=== PATIENT | female | born 1960 | race African-American/Black ===

== ENCOUNTER 2017-03-17 08:35 | Day surgery (SDC) | payer SELFPAY ==
[2017-03-16 14:57] VITALS: BMI 24.3
[2017-03-17] MEDS ORDERED: LIDOCAINE HCL 1%, 10 MG/ML (20ML VIAL) ONE (09:41)
[2017-03-17] MEDS ORDERED: EPINEPHrine/PF 1 MG/1 ML (1:1,000) AMPULE ONE (09:41)
[2017-03-17] MEDS ORDERED: PROPOFOL 20 ML ONE ×2 (09:46)
[2017-03-17] MEDS ORDERED: fentaNYL CITRATE 250 MCG/5 ML VIAL ONE (09:46)
[2017-03-17] MEDS ORDERED: ROCURONIUM BROMIDE 50 MG/5 ML VIAL ONE (09:46)
[2017-03-17] MEDS ORDERED: MIDAZOLAM HCL 2 MG/2 ML SINGLE DOSE VIAL ONE (09:47)
[2017-03-17] MEDS ORDERED: ceFAZolin SODIUM 1 GM VIAL ONE ×2 (09:47→15:22)
[2017-03-17] MEDS ORDERED: HEPARIN NA (PORCINE) 5,000 UNITS/ML 1ML VIAL ONE (09:48)
[2017-03-17] MEDS ORDERED: ceFAZolin SODIUM 1 GM VIAL IVPB ONE (10:49)
[2017-03-17] MEDS ORDERED: BUPIVACAINE HCL 0.25% 125 MG/50 ML VIAL INF ONE (11:00)
[2017-03-17] MEDS ORDERED: DEXAMETHASONE SOD PHOSPHATE 4 MG/1 ML VIAL ONE (11:24)
[2017-03-17] MEDS ORDERED: BUPIVACAINE HCL/PF 0.25% (2.5MG/ML) 10 ML VIAL ONE (11:25)
[2017-03-17] MEDS ORDERED: NEOSTIGMINE METHYLSULFATE 0.5 MG/ML - 10 ML MDV ONE (13:16)
[2017-03-17] MEDS ORDERED: GLYCOPYRROLATE 0.2 MG/1 ML VIAL ONE (13:16)
[2017-03-17] MEDS ORDERED: BACITRACIN 15 GM TUBE TOPICAL OINTMENT ONE (13:59)
[2017-03-17] MEDS ORDERED: ONDANSETRON 4 MG/2 ML VIAL IVPUSH PRN (14:21)
[2017-03-17] MEDS ORDERED: morphine SULFATE 4 MG/ML VIAL IVPUSH PRN (14:23)
[2017-03-17] MEDS ORDERED: ONDANSETRON 4 MG/2 ML VIAL IVPB PRN (14:23)
--- NOTE | 2017-03-17 14:28 | OP ---
Operative Note - Note: Operative Date: 03/17/17 Pre-Operative Diagnosis: abdominal deformity Operation: abdominoplasty Findings: diastasis recti Post-Operative Diagnosis: Same as Pre-op Surgeon: Herbert Moss Vegetable Trimmer: Keely Ramirez Anesthesia: General Drains & Tubes with Location: jpx 2
[2017-03-17] MEDS ORDERED: LACTATED RINGERS SOLUTION 1,000 ML IV SCH (14:30)
[2017-03-17] MEDS ORDERED: ACETAMINOPHEN INJECTION 100 ML IVPB ONE (14:49)
[2017-03-17] MEDS: ACETAMINOPHEN 1000 MG/100 ML VIAL (NON FORMULARY) IVPB PRN (14:50)
[2017-03-17] MEDS ORDERED: HYDROmorphone HCL CARPU-JECT 2 MG/1 ML DISP.SYRIN ONE (14:58)
[2017-03-17] MEDS: CEFAZOLIN 1 GM/D5W 1 GM/50 ML BAG IVPB SCH ×2 (15:00→21:48)
[2017-03-17] MEDS ORDERED: HYDROmorphone HCL CARPU-JECT 1 MG/1 ML DISP.SYRIN IVPUSH PRN (15:01)
[2017-03-17] MEDS ORDERED: HYDROmorphone HCL CARPU-JECT 2 MG/1 ML DISP.SYRIN IVPUSH PRN (15:26)
[2017-03-17] MEDS: LACTATED RINGERS SOLUTION 1,000 ML IV SCH (16:40)
[2017-03-17] MEDS ORDERED: morphine CARPU-JECT 8 MG/1 ML DISP.SYRIN IVPUSH PRN (20:15)
[2017-03-17] MEDS: oxyCODONE HCL 5 MG TABLET PO PRN (21:48)
[2017-03-17] MEDS: HEPARIN NA (PORCINE) 5,000 UNITS/ML 1ML VIAL SQ SCH (21:48)
[2017-03-18] MEDS: oxyCODONE HCL 5 MG TABLET PO PRN ×2 (01:43→17:13)
[2017-03-18] MEDS: CEFAZOLIN 1 GM/D5W 1 GM/50 ML BAG IVPB SCH ×3 (02:28→14:20)
[2017-03-18] MEDS: LACTATED RINGERS SOLUTION 1,000 ML IV SCH (05:04)
[2017-03-18] MEDS: ACETAMINOPHEN 1000 MG/100 ML VIAL (NON FORMULARY) IVPB PRN ×2 (05:13→11:18)
--- NOTE | 2017-03-18 07:54 | PN ---
Progress Note (short form) - Note Progress Note: POD 1 VSS AF All NICHO thin and functioning well No collections All tissues viable Ambulating, Rodo PO, Using IS, will receive sq heparin OK for discharge with instructions
[2017-03-18] MEDS: HEPARIN NA (PORCINE) 5,000 UNITS/ML 1ML VIAL SQ SCH (09:40)
[2017-03-18 09:49] VITALS: TEMP 98.7
--- NOTE | 2017-03-18 11:11 | PN ---
Progress Note, Physician Chief Complaint: s/p abdominoplasty post op day one History of Present Illness: under general anesthesia - Current Medication List Current Medications: Active Medications Acetaminophen (Ofirmev Injection -) 1,000 mg IVPB Q6H PRN PRN Reason: FEVER OR PAIN Last Admin: 03/18/17 05:13 Dose: 1,000 mg Fentanyl (Sublimaze Injection -) 50 mcg IVPUSH [id number] PRN PRN Reason: PAIN Last Admin: 03/17/17 14:45 Dose: 50 mcg Heparin Sodium (Porcine) (Heparin -) 5,000 unit SQ BID GISELE Last Admin: 03/18/17 09:40 Dose: 5,000 unit Hydromorphone HCl (Dilaudid Injection -) 1 mg IVPUSH [id number] PRN PRN Reason: PAIN Lactated Ringer's (Lactated Ringers Solution) 1,000 mls @ 125 mls/hr IV ASDIR GISELE Last Admin: 03/17/17 20:14 Dose: Not Given Cefazolin Sodium (Ancef 1 Gm Premixed Ivpb -) 1 gm in 50 mls @ 100 mls/hr IVPB Q6H-IV GISELE Stop: 03/23/17 14:59 Last Admin: 03/18/17 09:40 Dose: 100 mls/hr Lactated Ringer's (Lactated Ringers Solution) 1,000 mls @ 75 mls/hr IV ASDIR GISELE Last Admin: 03/18/17 05:04 Dose: 75 mls/hr Morphine Sulfate (Morphine Sulfate) 2 mg IVPUSH Q4H PRN PRN Reason: PAIN Last Admin: 03/18/17 03:42 Dose: 2 mg Ondansetron HCl (Zofran Injection) 4 mg IVPUSH Q6H PRN PRN Reason: NAUSEA AND/OR VOMITING Ondansetron HCl (Zofran Injection) 8 mg IVPB Q6H PRN PRN Reason: NAUSEA Oxycodone HCl (Roxicodone -) 5 mg PO Q4H PRN PRN Reason: PAIN Last Admin: 03/18/17 01:43 Dose: 5 mg - Objective Vital Signs: Vital Signs Temperature 98.7 F 03/18/17 08:00 Pulse Rate 59 L 03/18/17 08:00 Respiratory Rate 18 03/18/17 08:00 Blood Pressure 133/66 03/18/17 08:00 O2 Sat by Pulse Oximetry (%) 99 03/18/17 09:00 Constitutional: Yes: Well Nourished Cardiovascular: Yes: WNL Respiratory: Yes: WNL Gastrointestinal: Yes: WNL Assessment/Plan Pain controlled with IV analgesia, no nausea, vomiting or other adverse effects of anesthetic. Dept of anesthesia will sign off care at this time.
[2017-03-18 15:31] VITALS: BP 148/72; PULSE 62
--- NOTE | 2017-03-20 17:24 | PATH ---
Surgical Pathology Report Patient Name: JC HANEY [facility]. Rec. #: [id number] /Age/Gender: 1960 (Age: 56) / F Account: [id number] Location: AMBULATORY SURG Taken: 03/17/2017 Received: 03/18/2017 Reported: 03/20/2017 Physicians: Herbert Moss Specimen(s) Received ABDOMINAL TISSUE Clinical History Cosmetic case Final Diagnosis ABDOMINAL TISSUE, ABDOMINOPLASTY: UNREMARKABLE SKIN AND ADIPOSE TISSUE. MACROSCOPIC DIAGNOSIS. Electronically Signed Shilpi Cleary M.D. Gross Description Received in formalin labeled "abdominal tissue" is a 288 g, 23.0 x 13.5 x 2.5 cm aggregate of 2 brown, triangular, unoriented portions of skin with underlying soft tissue. The epidermal surfaces are unremarkable. Sectioning reveals unremarkable yellow, lobulated adipose tissue. No lesions are identified. No sections are submitted, gross only. 03/19/2017 [facility]03/19/2017
== END 2017-03-18 19:24 | disposition home or self-care (01) ==
LOC: JASUSAT 08:35 → J6S 17:25 → JASUSAT 03-18 19:24
PROVIDERS: ATTEND Plastic Surgery
PROC: 0J080ZZ Alteration of Abdomen Subcutaneous Tissue and Fascia, Open Approach (ICD-10-PCS; principal; 2017-03-17 10:00)
DX: Z41.1 Encounter for cosmetic surgery (principal); M95.8 Other specified acquired deformities of musculoskeletal system
CPT/HCPCS: 84703; 88300-TC; 94010; 94760; J1644

== ENCOUNTER 2017-03-29 15:32 | Emergency (ER) | payer OTHER ==
[2017-03-29 15:56] VITALS: BP 126/64; PULSE 87; TEMP 99.2; BMI 22.8
[2017-03-29] MEDS ORDERED: ONDANSETRON 4 MG/2 ML VIAL IVPUSH ONE (16:28)
[2017-03-29] MEDS ORDERED: SODIUM CHLORIDE 1,000 ML IV STA (16:28)
--- NOTE | 2017-03-29 16:36 | PDOC ---
History of Present Illness - History of Present Illness Initial Comments: 03/29/17 16:38 The patient is a 56 year old female with a history of GERD who presents for evaluation of abdominal pain and constipation. The patient reports a 2 week history of crampy abdominal pain since a abdominoplasty surgery she had on . She reports continued constipation since the surgery despite the use of colace and laxitives. She states that she presented to her surgeon's office 1 week ago for these complaints and was prescribed a laxitive without any success. She reports that she attempted an enema 1 day ago at the advice of her surgeon without success as well prompting her presentation to the ED today. She denies any vomiting and has been tolerating PO intake. She denies any fevers, chills, SOB, chest pain, or changes with urination. <Sp Marin - Last Filed: 03/29/17 16:38> <Jackie Shin - Last Filed: 03/30/17 01:55> - General Chief Complaint: Pain Stated Complaint: REVISIT/ ABD PAIN, CONSTIPATED Time Seen by Provider: 03/29/17 16:08 Past History - Past Medical History Anemia: No Asthma: No Cancer: No Cardiac Disorders: No CVA: No COPD: No CHF: No DVT: No Dementia: No Diabetes: No GI Disorders: Yes (REFLUX) Disorders: No HTN: No Hypercholesterolemia: No Liver Disease: No Seizures: No Thyroid Disease: No - Surgical History Abdominal Surgery: Yes (UMBILICAL HERNIA REPAIR AT AGE 12) Appendectomy: Yes Cardiac Surgery: No Cholecystectomy: No Lung Surgery: No Neurologic Surgery: No Orthopedic Surgery: No - Suicide/Smoking/Psychosocial Hx Smoking History: Never smoked Have you smoked in the past 12 months: Yes Number of Cigarettes Smoked Daily: 5 'Breaking Loose' booklet given: 03/17/17 Hx Alcohol Use: No Drug/Substance Use Hx: No Substance Use Type: None Hx Substance Use Treatment: No <Sp Marin - Last Filed: 03/29/17 16:38> <Jackie Shin - Last Filed: 03/30/17 01:55> - Past Medical History Allergies/Adverse Reactions: Allergies Allergy/AdvReac Type Severity Reaction Status Date / Time metoclopramide HCl Allergy Intermediate SLOW HEART Verified 03/29/17 15:46 [From Reglan] RATE Home Medications: Ambulatory Orders Apixaban [Eliquis] 2.5 mg PO TID 03/29/17 Bisacodyl [Dulcolax] 5 mg PO TID 03/29/17 Cyclobenzaprine HCl [Flexeril 10 mg] 10 mg PO BID PRN 03/29/17 Polyethylene Glycol 3350 [Gavilax] 17 gm PO DAILY 03/29/17 Review of Systems - Review of Systems Comments:: 03/29/17 16:50 Constitutional: No fevers, chills, fatigue, malaise HEENT: No Rhinorrhea, nasal congestion, visual changes Cardiovascular: No chest pain, syncope, palpitations, lightheadedness Respiratory: No Cough, SOB, Hemoptysis, Gastrointestinal: Abdominal pain, nausea, diarrhea. No Vomiting, Constipation, Melena Genitourinary: No Dysuria, Frequency, Urgency, Hesitancy, Hematuria, Flank pain Musculoskeletal: No Myalgia, arthralgia Skin: No rashes, bruising, pallor Neurologic: No Headache, Dizziness, Numbness, Weakness, or Tingling Psychiatric: No Hallucinations. No SI or HI <Sp Marin - Last Filed: 03/29/17 16:38> *Physical Exam - Vital Signs Last Vital Signs Temp Pulse Resp BP Pulse Ox 99.2 F 87 20 126/64 100 03/29/17 15:42 03/29/17 15:42 03/29/17 15:42 03/29/17 15:42 03/29/17 15:42 - Physical Exam Comments: 03/29/17 16:51 General Appearance: Nourished. No Apparent Distress HEENT: EOMI, GORGE. No Pharyngeal Erythema, Tonsillar Exudate, Tonsillar Erythema Neck: No Cervical Lymphadenopathy Respiratory/Chest: Lungs Clear, Normal Breath Sounds. No Crackles, Rales, Rhonchi, Wheezing Cardiovascular: Regular Rhythm, Regular Rate. No Murmur, Gallops, Rubs Gastrointestinal/Abdominal: Hypoactive bowel sounds. Well healing abdominal incision with a drain in place without any erythema or drainage. Diffuse lower abdominal tenderness to palpation with some guarding. No Rebound, Musculoskeletal: No CVA Tenderness Extremity: Normal Capillary Refill Integumentary: Normal Color, Dry, Warm Neurologic: Fully Oriented, Alert, Normal Mood/Affect, Normal Response, <Sp Marin - Last Filed: 03/29/17 16:38> - Vital Signs Last Vital Signs Temp Pulse Resp BP Pulse Ox 99.2 F 87 20 126/64 100 03/29/17 15:42 03/29/17 15:42 03/29/17 15:42 03/29/17 15:42 03/29/17 15:42 <Jackie Shin - Last Filed: 03/30/17 01:55> ED Treatment Course - RADIOLOGY Radiology Studies Ordered: Category Date Time Status ABDOMEN & PELVIS CT WITH CONTR [CT] Stat CT Scan 03/29/17 16:32 Ordered <Sp Marin - Last Filed: 03/29/17 16:38> - LABORATORY CBC & Chemistry Diagram: 03/29/17 16:55 03/29/17 16:55 - ADDITIONAL ORDERS Additional order review: Laboratory Results 03/29/17 03/29/17 03/29/17 17:05 16:55 16:55 Sodium 141 Potassium 3.5 Chloride 102 Carbon Dioxide 28 Anion Gap 11 BUN 9 Creatinine 0.7 Creat Clearance w eGFR > 60 Random Glucose 89 Lactic Acid 1.3 Calcium 9.1 Total Bilirubin 0.9 AST 11 L ALT 21 Alkaline Phosphatase 72 Total Protein 7.3 Albumin 3.5 Lipase 91 Urine Color Yellow Urine Appearance Clear Urine pH 5.0 Ur Specific [place] 1.026 Urine Protein Negative Urine Glucose (UA) Negative Urine Ketones Negative Urine Blood Negative Urine Nitrite Negative Urine Bilirubin Negative Urine Urobilinogen 2.0 H 03/29/17 16:55 RBC 4.70 MCV 80.9 MCHC 32.6 RDW 14.2 MPV 9.5 Neutrophils % 67.0 Lymphocytes % 24.1 Monocytes % 6.7 Eosinophils % 0.7 Basophils % 1.5 - Medications Given in the ED: ED Medications Discontinued Medications Generic Name Dose Route Start Last Admin Trade Name Freq PRN Reason Stop Dose Admin Sodium Chloride 1,000 mls @ 1,000 mls/hr 03/29/17 16:28 03/29/17 17:11 Normal Saline - IV 03/29/17 17:27 1,000 mls/hr ASDIR STA Administration Ondansetron HCl 4 mg 03/29/17 16:28 03/29/17 17:12 Zofran Injection IVPUSH 03/29/17 16:29 4 mg ONCE ONE Administration <Jackie Shinh - Last Filed: 03/30/17 01:55> Medical Decision Making - Medical Decision Making 03/29/17 16:53 The patient is a 56 year old female with a history of GERD who presents for evaluation of abdominal pain and constipation. Differential includes but is not limited to: Illeus, abcess, obstruction, infectious, metabolic derangement. Given the patient's tender abdomen, we will obtain a ct abdomen pelvis to evaluate for any abscess or obstruction. We have a lower suspicion for obstruction, given the patient's ability to tolerate PO and absence of vomiting. It is likely her symptoms are due to constipation. We will also obtain a cbc, cmp, lipase, lactate, ua to evaluate for other etiologies. We will treat with zofran and some iv fluids. We will continue to monitor and reassess. <Sp Marin - Last Filed: 03/29/17 16:38> *DC/Admit/Observation/Transfer <Sp Marin - Last Filed: 03/29/17 16:38> <Jackie Shin - Last Filed: 03/30/17 01:55> Diagnosis at time of Disposition: Constipation - Discharge Dispostion Disposition: HOME Condition at time of disposition: Stable - Referrals Referrals: Artur Dixon [Primary Care Provider] - - Patient Instructions Printed Discharge Instructions: DI for Constipation Additional Instructions: please followup with your surgeon this week - Post Discharge Activity
[2017-03-29 17:03] LABS: BASO % 1.5 % (0-2.0); EOS % 0.7 % (0-4.5); HEMOGLOBIN 12.4 GM/dL (10.7-15.3); LYMPH % 24.1 % (8-40); MCH 26.4 pg (25.7-33.7); MCHC 32.6 g/dl (32.0-36.0); MEAN CELL VOLUME 80.9 fl (80-96); MEAN PLT VOLUME 9.5 fl (7.5-11.1); MONO % 6.7 % (3.8-10.2); PLATELET COUNT 166 K/MM3 (134-434); RDW 14.2 % (11.6-15.6); WHITE BLOOD COUNT 6.9 K/mm3 (4.0-10.0)
[2017-03-29] MEDS ORDERED: ONDANSETRON 4 MG/2 ML VIAL ONE (17:06)
[2017-03-29 17:20] LABS: URINE APPEARANCE CLEAR; URINE BILIRUBIN NEGATIVE (NEGATIVE); URINE BLOOD NEGATIVE (NEGATIVE); URINE COLOR YELLOW; URINE GLUCOSE (UA) NEGATIVE (NEGATIVE); URINE KETONE NEGATIVE (NEGATIVE); URINE LEUK ESTERASE NEGATIVE (NEGATIVE); URINE NITRITE NEGATIVE (NEGATIVE); URINE PROTEIN NEGATIVE (NEGATIVE)
[2017-03-29 17:27] LABS: ALBUMIN 3.5 g/dl (3.4-5.0); ANION GAP 11 (8-16); BILIRUBIN,TOTAL 0.9 mg/dL (0.2-1.0); BLOOD UREA NITROGEN 9 mg/dL (7-18); CALCIUM 9.1 mg/dL (8.5-10.1); CHLORIDE 102 mmol/L (98-107); CO2 28 mmol/L (21-32); CREATININE 0.7 mg/dL (0.55-1.02); GLUCOSE,RANDOM 89 mg/dL (74-106); LIPASE 91 U/L (73-393); POTASSIUM 3.5 mmol/L (3.5-5.1); SGOT/AST 11 U/L (15-37); SGPT/ALT 21 U/L (12-78); SODIUM 141 mmol/L (136-145); TOT PROT 7.3 g/dl (6.4-8.2)
[2017-03-29 17:28] LABS: ALK PHOS 72 U/L (45-117)
--- NOTE | 2017-03-29 17:48 | PDOC ---
Attending Attestation - Resident Resident Name: Sp Marin - ED Attending Attestation I have performed the following: I have examined & evaluated the patient, The case was reviewed & discussed with the resident, I agree w/resident's findings & plan, Exceptions are as noted - HPI HPI: 03/29/17 17:46 56 yo female s/p abdominalplasty about [address] Moss now p/w abd pain and no bowel mvmt for past week. - Physicial Exam PE: 03/29/17 17:49 slender 56 yo female p/w diffuse abdominal pain head- ncat neck-supple,bruits lungs -cta b/l cvs -[id number] no murmers abd lower abdominal tenderness to deep palpation,no rebound extremities- no cellulitis, no pitting edema,motor strength 5/5 neuro- axox3,ambulatory,no gross focal neuro deficits skin survival site is intact with NO evidence of wound dehiscent or purulence psych -appropriate - Medical Decision Making 03/30/17 01:55 ct scan of abd/pelvis with contrast was NEGATIVE for any acute abd/pelvic process but was c/w constipation pt given laxatives discharged home with sister
--- NOTE | 2017-03-29 19:34 | PDOC ---
*Physical Exam - Vital Signs Last Vital Signs Temp Pulse Resp BP Pulse Ox 99.2 F 87 20 126/64 100 03/29/17 15:42 03/29/17 15:42 03/29/17 15:42 03/29/17 15:42 03/29/17 15:42 - Physical Exam Comments: 03/29/17 21:08 GENERAL: Awake, alert, and fully oriented, in no acute distress HEAD: No signs of trauma, normocephalic, atraumatic EYES: PERRLA, EOMI, sclera anicteric, conjunctiva clear ENT: Auricles normal inspection, hearing grossly normal, nares patent, oropharynx clear without exudates. Moist mucosa LUNGS: No distress, speaks full sentences, clear to auscultation bilaterally HEART: Regular rate and rhythm, normal S1 and S2, no murmurs, rubs or gallops, peripheral pulses normal and equal bilaterally. ABDOMEN: Drain present, no signs of infection, diffusely tender. NEUROLOGICAL: Cranial nerves II through XII grossly intact. Normal speech, no focal sensorimotor deficits <Kip Buck - Last Filed: 03/29/17 22:50> - Vital Signs Last Vital Signs Temp Pulse Resp BP Pulse Ox 99.2 F 87 20 126/64 100 03/29/17 15:42 03/29/17 15:42 03/29/17 15:42 03/29/17 15:42 03/29/17 15:42 <Jackie Shin - Last Filed: 03/30/17 01:00> ED Treatment Course - LABORATORY CBC & Chemistry Diagram: 03/29/17 16:55 03/29/17 16:55 - ADDITIONAL ORDERS Additional order review: Laboratory Results 03/29/17 03/29/17 03/29/17 17:05 16:55 16:55 Sodium 141 Potassium 3.5 Chloride 102 Carbon Dioxide 28 Anion Gap 11 BUN 9 Creatinine 0.7 Creat Clearance w eGFR > 60 Random Glucose 89 Lactic Acid 1.3 Calcium 9.1 Total Bilirubin 0.9 AST 11 L ALT 21 Alkaline Phosphatase 72 Total Protein 7.3 Albumin 3.5 Lipase 91 Urine Color Yellow Urine Appearance Clear Urine pH 5.0 Ur Specific [place] 1.026 Urine Protein Negative Urine Glucose (UA) Negative Urine Ketones Negative Urine Blood Negative Urine Nitrite Negative Urine Bilirubin Negative Urine Urobilinogen 2.0 H 03/29/17 16:55 RBC 4.70 MCV 80.9 MCHC 32.6 RDW 14.2 MPV 9.5 Neutrophils % 67.0 Lymphocytes % 24.1 Monocytes % 6.7 Eosinophils % 0.7 Basophils % 1.5 - Medications Given in the ED: ED Medications Discontinued Medications Generic Name Dose Route Start Last Admin Trade Name Freq PRN Reason Stop Dose Admin Sodium Chloride 1,000 mls @ 1,000 mls/hr 03/29/17 16:28 03/29/17 17:11 Normal Saline - IV 03/29/17 17:27 1,000 mls/hr ASDIR STA Administration Ondansetron HCl 4 mg 03/29/17 16:28 03/29/17 17:12 Zofran Injection IVPUSH 03/29/17 16:29 4 mg ONCE ONE Administration <Kip Buck - Last Filed: 03/29/17 22:50> - LABORATORY CBC & Chemistry Diagram: 03/29/17 16:55 03/29/17 16:55 - ADDITIONAL ORDERS Additional order review: Laboratory Results 03/29/17 03/29/17 03/29/17 17:05 16:55 16:55 Sodium 141 Potassium 3.5 Chloride 102 Carbon Dioxide 28 Anion Gap 11 BUN 9 Creatinine 0.7 Creat Clearance w eGFR > 60 Random Glucose 89 Lactic Acid 1.3 Calcium 9.1 Total Bilirubin 0.9 AST 11 L ALT 21 Alkaline Phosphatase 72 Total Protein 7.3 Albumin 3.5 Lipase 91 Urine Color Yellow Urine Appearance Clear Urine pH 5.0 Ur Specific [place] 1.026 Urine Protein Negative Urine Glucose (UA) Negative Urine Ketones Negative Urine Blood Negative Urine Nitrite Negative Urine Bilirubin Negative Urine Urobilinogen 2.0 H Ur Leukocyte Esterase Negative 03/29/17 16:55 RBC 4.70 MCV 80.9 MCHC 32.6 RDW 14.2 MPV 9.5 Neutrophils % 67.0 Lymphocytes % 24.1 Monocytes % 6.7 Eosinophils % 0.7 Basophils % 1.5 - Medications Given in the ED: ED Medications Discontinued Medications Generic Name Dose Route Start Last Admin Trade Name Freq PRN Reason Stop Dose Admin Sodium Chloride 1,000 mls @ 1,000 mls/hr 03/29/17 16:28 03/29/17 17:11 Normal Saline - IV 03/29/17 17:27 1,000 mls/hr ASDIR STA Administration Lactulose 20 gm 03/29/17 22:12 03/29/17 22:45 Cephulac (Oral Use) PO 03/29/17 22:13 20 gm ONCE ONE Administration Ondansetron HCl 4 mg 03/29/17 16:28 03/29/17 17:12 Zofran Injection IVPUSH 03/29/17 16:29 4 mg ONCE ONE Administration <Jackie Shin - Last Filed: 03/30/17 01:00> Medical Decision Making - Medical Decision Making 03/29/17 21:[address] Marin. 56F with history of GERD here today complaining of abdominal pain and constipation after tummy tuck 2 weeks ago. On percocet for pain. Patient on eliquis for post-op prophylaxis. CT pending. Labs normal. CT shows large stool burden without evidence of obstruction or infection. Will give enema. Patient moved into room with private bathroom. Will administer and reassess. 03/29/17 22:50 Enema produced small bowel movement. Will give lactulose and observe until patient can get a ride home at 1am. Will discharge with return precautions and instructions to follow up with her surgeon. <Kip Buck - Last Filed: 03/29/17 22:50> *DC/Admit/Observation/Transfer <Kip Buck - Last Filed: 03/29/17 22:50> <Jackie Shin - Last Filed: 03/30/17 01:00> Diagnosis at time of Disposition: Constipation Qualifiers: Constipation type: other constipation type Qualified Code(s): K59.09 - Other constipation - Discharge Dispostion Disposition: HOME Condition at time of disposition: Stable - Referrals Referrals: Artur Dixon [Primary Care Provider] - - Patient Instructions Printed Discharge Instructions: DI for Constipation Additional Instructions: please followup with your surgeon this week - Post Discharge Activity
[2017-03-29] MEDS ORDERED: LACTULOSE 20 GM/30 ML UDC (FOR ORAL USE ONLY) PO ONE (22:12)
[2017-03-29] MEDS ORDERED: LACTULOSE 20 GM/30 ML UDC (FOR ORAL USE ONLY) ONE (22:35)
== END 2017-03-30 01:01 | disposition home or self-care (01) ==
LOC: JER 15:32
PROC: 3E0337Z Introduction of Electrolytic and Water Balance Substance into Peripheral Vein, Percutaneous Approach (ICD-10-PCS; principal; 2017-03-29)
PROC: 3E033GC Introduction of Other Therapeutic Substance into Peripheral Vein, Percutaneous Approach (ICD-10-PCS; 2017-03-29)
DX: K59.00 Constipation, unspecified (principal); Z98.890 Other specified postprocedural states
CPT/HCPCS: 36415; 74177-TC; 80053; 81003; 83605; 83690; 85025; 99282-25